=== PATIENT | male | born 1985 | race Caucasian/White ===

== ENCOUNTER 2016-06-28 09:23 | Emergency (ER) | payer OTHER ==
[~2016-06-28] VITALS: Ht 182.9 cm; Wt 90.0 kg
[~2016-06-28 09:23] MED LIST: ADDE20XR PO; CLON1 PO; TRAM50 PO
[2016-06-28 09:24] VITALS: BP 138/72; PULSE 70; RESP 20; TEMP 97.9; O2SAT 100
[2016-06-28] MEDS ORDERED: ADDE30TA PO (09:45)
[2016-06-28] MEDS ORDERED: TEMA30CA PO (09:45)
[2016-06-28] MEDS ORDERED: BENA25CA4 PO (09:47)
[2016-06-28] MEDS ORDERED: FLUT1INH INH (09:47)
--- NOTE | 2016-06-28 09:52 | PD ---
HPI Chief Complaint: Anxiety Time Seen by Provider: 09:52 Travel History International Travel<30 days: No Contact w/Intl Traveler<30days: No Traveled to known affect area: No History of Present Illness HPI 30-year-old male came to the emergency room with history of prickly sensation all over his body. Patient says this has been going on for past 5 days but over the past couple days it has been worse. He has not slept well through the night because the sensation keeps waking him up. He is also noticed that his hands and feet are going numb. Patient says he has history of anxiety and he found out 3 weeks ago that his friend was diagnosed with scabies. He has been extremely concerned if his symptoms are due to scabies. He has been looking at his skin surface closely to look for any rash or burrows which she has not found. Patient is on Adderall and temazepam prescribed by his primary care. He says the Adderall was recently increased in its dose. Vital signs are stable otherwise. [facility] Past Medical History Narrative Medical List of his past medical, surgical, social and family history is reviewed from the nursing note. ADD: Yes Asthma: Yes Anxiety: Yes Diminished Hearing: No Tetanus Vaccination: < 5 Years Influenza Vaccination: No Past Surgical History Cholecystectomy: Yes Other Surgery: Yes (arterial bypass ) Social History Alcohol Use: No Tobacco Use: Yes (5-6 cig ) Substance Use: Yes (MARIJUANA last use was 2 months ago ) Allergies-Medications (Allergen,Severity, Reaction): Coded Allergies: No Known Allergies (Unverified , 06/28/16) Comments No known drug allergies. Reported Meds & Prescriptions Reported Meds & Active Scripts Active Permethrin Topical 5% (Permethrin) 5% Cream 1 Applic TOPICAL ONCE Reported Benadryl Allergy (Diphenhydramine HCl) 25 Mg Cap 50 Mg PO AT 5 AM Breo Ellipta Inh (Fluticasone/Vilanterol) 100-25 Mcg/Act Inh 1 Puff INH DAILY Use daily at the same time. Adderall (Amphetamine-Dextroamphetamine) 30 Mg Tab 30 Mg PO DAILY Avoid late evening doses. Space doses at least 4 to 6 hours if more than once/day dosing. Temazepam 30 Mg Cap 30 Mg PO HS PRN Narrative Medication List of his home medications reviewed from the nursing note. Review of Systems Except as stated in HPI: all other systems reviewed are Neg Physical Exam Narrative GENERAL: Awake, alert, anxious SKIN: Focused skin assessment warm/dry. No rash noticed HEAD: Atraumatic. Normocephalic. EYES: Pupils equal and round. No scleral icterus. No injection or drainage. ENT: No nasal bleeding or discharge. Mucous membranes pink and moist. NECK: Trachea midline. No JVD. CARDIOVASCULAR: Regular rate and rhythm. No murmur appreciated. RESPIRATORY: No accessory muscle use. Clear to auscultation. Breath sounds equal bilaterally. GASTROINTESTINAL: Abdomen soft, non-tender, nondistended. Hepatic and splenic margins not palpable. MUSCULOSKELETAL: No obvious deformities. No clubbing. No cyanosis. No edema. NEUROLOGICAL: Awake and alert. No obvious cranial nerve deficits. Motor grossly within normal limits. Normal speech. PSYCHIATRIC: Appropriate mood and affect; insight and judgment normal. Extremely anxious Data Data Last Documented VS Vital Signs Date Time Temp Pulse Resp B/P Pulse Ox O2 Delivery O2 Flow Rate FiO2 06/28/16 11:40 98.3 67 20 138/65 98 06/28/16 10:44 Room Air Orders Complete Blood Count With Diff (06/28/16 10:04) Basic Metabolic Panel (Bmp) (06/28/16 10:04) C-Reactive Protein (Crp) (06/28/16 10:04) Thiamine (Vit B1) (Vitamin B1) (06/28/16 10:15) Alprazolam (Xanax) (06/28/16 10:15) C-Reactive Protein (Crp) (06/28/16 10:15) Magnesium (Mg) (06/28/16 10:15) Labs Laboratory Tests Test 06/28/16 10:15 White Blood Count 10.6 TH/MM3 Red Blood Count 4.81 MIL/MM3 Hemoglobin 14.8 GM/DL Hematocrit 42.7 % Mean Corpuscular Volume 88.7 FL Mean Corpuscular Hemoglobin 30.7 PG Mean Corpuscular Hemoglobin 34.6 % Concent Red Cell Distribution Width 13.1 % Platelet Count 272 TH/MM3 Mean Platelet Volume 8.5 FL Neutrophils (%) (Auto) 85.3 % Lymphocytes (%) (Auto) 10.1 % Monocytes (%) (Auto) 3.0 % Eosinophils (%) (Auto) 1.2 % Basophils (%) (Auto) 0.4 % Neutrophils # (Auto) 9.0 TH/MM3 Lymphocytes # (Auto) 1.1 TH/MM3 Monocytes # (Auto) 0.3 TH/MM3 Eosinophils # (Auto) 0.1 TH/MM3 Basophils # (Auto) 0.0 TH/MM3 CBC Comment DIFF FINAL Differential Comment Sodium Level 140 MEQ/L Potassium Level 4.7 MEQ/L Chloride Level 104 MEQ/L Carbon Dioxide Level 29.4 MEQ/L Anion Gap 7 MEQ/L Blood Urea Nitrogen 7 MG/DL Creatinine 0.77 MG/DL Estimat Glomerular Filtration 119 ML/MIN Rate Random Glucose 100 MG/DL Calcium Level 8.7 MG/DL Magnesium Level 2.0 MG/DL C-Reactive Protein LESS THAN 0.29 MG/DL MDM Medical Decision Making Medical Screen Exam Complete: Yes Emergency Medical Condition: Yes Differential Diagnosis Paresthesia, peripheral neuropathy, generalized anxiety disorder Narrative Course 11:21 AM all of his labs are back and within normal limits. I will discharge him home. Procedures EKG Prior to Arrival: No Diagnosis Primary Impression: Paresthesia Additional Impression: Anxiety disorder Qualified Code: F41.9 - Anxiety disorder, unspecified type Referrals: Primary Care Physician 3 days Additional Instructions: Please return to the ER if the condition worsens or any other new concerns. Please contact her primary care and schedule an appointment. Continue taking your temazepam. You need to talk to him regarding the Adderall continuation. Med/Other Pt SpecificInfo: Prescription(s) given Scripts Permethrin Topical 5% 5% Cream1 Applic TOPICAL ONCE #1 TUBE Ref 0 Prov:Tristan Lott MD 06/28/16 Disposition: 01 DISCHARGE HOME Condition: Stable Tristan Lott MD June 28, 2016 09:52
[2016-06-28] MEDS ORDERED: THIAMINE HCL 100 MG TAB PO ONE (10:15)
[2016-06-28] MEDS ORDERED: ALPRAZolam 0.5 MG TAB PO ONE (10:15)
[2016-06-28 10:34] LABS: BASOPHIL % 0.4 % (0.0-2.0); EOSINOPHIL # 0.1 TH/MM3 (0-0.4); EOSINOPHIL % 1.2 % (0.0-4.0); HEMATOCRIT 42.7 % (39.0-51.0); HEMO FLAGS DIFF FINAL; LYMPH % 10.1 % (9.0-44.0); LYMPHOCYTE # 1.1 TH/MM3 (1.0-4.8); MEAN CELL VOLUME 88.7 FL (80.0-100.0); MEAN CORPUSCULAR HEMOGLOBIN 30.7 PG (27.0-34.0); MEAN CORPUSCULAR HGB CONC 34.6 % (32.0-36.0); NEUT % 85.3 % (16.0-70.0); PLATELET COUNT 272 TH/MM3 (150-450); RED BLOOD COUNT 4.81 MIL/MM3 (4.50-5.90); RED CELL DISTRIBUTION WIDTH 13.1 % (11.6-17.2); WHITE BLOOD COUNT 10.6 TH/MM3 (4.0-11.0)
[2016-06-28 10:44] VITALS: BP 118/73; PULSE 63; RESP 18; O2SAT 99
[2016-06-28 11:06] LABS: ANION GAP 7 MEQ/L (5-15); BICARBONATE 29.4 MEQ/L (21.0-32.0); BLOOD UREA NITROGEN 7 MG/DL (7-18); CHLORIDE 104 MEQ/L (98-107); GLOMERULAR FILTRATION RATE 119 ML/MIN (>89); SODIUM (NA) 140 MEQ/L (136-145)
[2016-06-28 11:09] LABS: POTASSIUM 4.7 MEQ/L (3.5-5.1)
[2016-06-28] MEDS ORDERED: PERM5CRE TOPICAL (11:27)
[2016-06-28 11:40] VITALS: BP 138/65; TEMP 98.3
== END 2016-06-28 11:51 | disposition home or self-care (01) ==
LOC: NEPD 09:23
DX: R20.2 Paresthesia of skin (principal); F41.9 Anxiety disorder, unspecified; J45.909 Unspecified asthma, uncomplicated; F17.210 Nicotine dependence, cigarettes, uncomplicated
CPT/HCPCS: 80048; 83735; 85025; 86140; 99284